=== PATIENT | male | born 1970 | race Caucasian/White ===

== ENCOUNTER 2018-03-26 05:31 | Emergency (ER) | payer BC ==
[2018-03-26] MEDS ORDERED: Sodium Chloride 0.9% 10 ML Syringe FLUSH PRN (06:13)
[2018-03-26] MEDS ORDERED: LORazepam 2 MG/ML SDV IVPUSH ONE ×2 (06:13→09:32)
[2018-03-26] MEDS ORDERED: Sodium Chloride 0.9% 2.5 ML Syringe FLUSH PRN (06:13)
[2018-03-26] MEDS ORDERED: HYDROmorphone 1 MG/ML Syringe IVPUSH ONE ×2 (06:13→09:31)
[2018-03-26] MEDS ORDERED: Ketorolac 30 MG/ML SDV IVPUSH ONE (06:13)
[2018-03-26] MEDS ORDERED: Ondansetron 4 MG/2 ML SDV IVPUSH ONE (06:13)
[2018-03-26] MEDS ORDERED: Sodium Chloride 0.9% 1,000 ML IV SCH (06:15)
--- NOTE | 2018-03-26 06:22 | EDM.PDOC ---
<Fernanda Oconnell - Last Filed: 03/26/18 06:36> ED HPI GENERAL MEDICAL PROBLEM - General Chief Complaint: Back Pain or Injury Stated Complaint: BACK PAIN Time Seen by Provider: 03/26/18 05:50 - History of Present Illness INITIAL COMMENTS - FREE TEXT/NARRATIVE: HISTORY AND PHYSICAL: History of present illness: The patient is a 48-year-old male with a history of chronic back pain who [facility] and is now being seen in our family practice residency clinic and presents with complaints of worsening lumbar back pain radiating to his left leg. According to the patient he was seen in the clinic last week and he was scheduled to have an epidural injection performed here in 2 days on . He has a chronic history of L1-L2 disc disease and in the past to steroid injections have done very well with him in the last one was 13 months ago. He tells me he has not had an MRI for about a year and the clinic was in the process of getting those medical records. The patient has not had any new trauma such as falls or strenuous activity and when he was seen in the clinic he was given some Percocet as well as Zanaflex which he said did not help very much. He tells me that in the past he has never had such severe pain nor has he had the pain radiating to his left leg as severely as this current episode. He also tells me that he is unsure if his left leg feels weaker as there is somewhat pain when he puts weight on it he cannot tell. Sensation is intact and he has not had any bowel disturbances but he has had urinary incontinence 2 times. He tells me that yesterday morning, Sunday morning, he was sleeping and woke up wet on 2 occasions. He initially attributed this to taking the medication and taking his trazodone and being in a deep sleep. He tells me this has never happened to him before. He initially registered to try to get some pain medications to tide him through until the epidural injection. The patient is unsure who is performing this procedure and he has never seen our pain doctor in the pain clinic. The patient has no other systemic complaints such as hematuria dysuria abdominal pain nausea vomiting diarrhea fevers chills chest pain or upper respiratory tract infections or shortness of breath. The patient does tell me that he has had urinary frequency without sensation of urinary retention and again he attributes that to drinking a lot of fluids but that has never happened to him before. Review of systems: As per history of present illness and below otherwise all systems reviewed and negative. Past medical history: As per history of present illness and as reviewed below otherwise noncontributory. Surgical history: As per history of present illness and as reviewed below otherwise noncontributory. Social history: No reported history of drug or alcohol abuse. Family history: As per history of present illness and as reviewed below otherwise noncontributory. Physical exam: General: Well-developed well-nourished man who looks very uncomfortable in the ED and prefers not to sit down because any pressure on his buttocks causes extreme pain in his left leg. He can ambulate but you can see that he is limping because he does not want to put full weight on his left leg. Vital signs are noted by me HEENT: Atraumatic, normocephalic, negative for conjunctival pallor or scleral icterus, mucous membranes moist, throat clear, neck supple, nontender, trachea midline. Lungs: Clear to auscultation, breath sounds equal bilaterally, chest nontender. Heart: S1S2, regular, rhythm and slightly tachycardic rate on my evaluation, no overt murmurs are appreciated Abdomen: Soft, nondistended, nontender. Negative for masses or hepatosplenomegaly. Negative for costovertebral tenderness. Pelvis: Stable nontender. Genitourinary: Deferred. Rectal: There is normal push squeeze and tone on my evaluation and there is normal perianal and perineal sensation Extremities: Atraumatic, negative for cords or calf pain. Neurovascular unremarkable. Neuro: Awake, alert, oriented. Cranial nerves II through XII unremarkable. Cerebellum unremarkable. sensory unremarkable throughout. Dorsi and plantar flexion are intact but there is a subtle weakness on the left side but he can extend the great toe. Inversion and eversion of the feet is intact. Patellar reflexes are +2 over 4 bilaterally with respect to the palpable quadricep contraction but there is not a risk visual with the reflex, the lower extremity on the left does have a subtle weakness compared to the right with a 4.5 over 5 motor Back: There are no midline step-offs tenderness or defects of the thoracic or lumbar spine and no posterior pelvis tenderness. There is no discrete tenderness with palpation of the buttocks bilaterally Diagnostics: Bladder scan, MRI of the lumbar spine Therapeutics: Maintenance IV fluids, nothing by mouth status, Dilaudid Zofran Toradol Ativan Solu-Medrol In light of the patient's history and physical findings I was able to get a stat MRI for 7:30 this morning. Although his physical findings are not as impressive as his history feel that he merits a stat MRI to rule out cauda equina. Patient understands the workup and we will attempt to get his pain under some control. Bladder scan showed 238 mL of urine 0700: Case is endorsed to Dr. Lawler to follow-up the MRI and disposition the patient pending those results. Impression: Acute on chronic lumbar back pain Definitive disposition and diagnosis as appropriate pending reevaluation and review of above. lower back Pain Score (Numeric/FACES): 10 - Related Data Allergies Allergy/AdvReac Type Severity Reaction Status Date / Time No Known Allergies Allergy Verified 03/26/18 05:39 Home Meds: Home Meds Albuterol/Ipratropium [Combivent Respimat] 1 puff INH ASDIRECTED PRN 03/26/18 [ History] oxyCODONE HCl/Acetaminophen [Percocet 5-325 mg Tablet] 0 mg PO ASDIRECTED PRN [History] traZODone HCl [Trazodone HCl] 1 tab PO BEDTIME 03/26/18 [History] Past Medical History Respiratory History: Reports: Asthma Musculoskeletal History: Reports: Back Pain, Chronic Social & Family History - Family History Family Medical History: Noncontributory - Tobacco Use Smoking Status *Q: Never Smoker - Recreational Drug Use Recreational Drug Use: No ED ROS GENERAL - Review of Systems Review Of Systems: ROS reveals no pertinent complaints other than HPI. ED EXAM, GENERAL - Physical Exam Exam: See Below (See dictation) Course - Vital Signs Last Recorded V/S: Last Vital Signs Temp 97 F 03/26/18 08:31 Pulse 58 L 03/26/18 09:50 Resp 16 03/26/18 09:50 BP 130/55 L 03/26/18 09:50 Pulse Ox 97 03/26/18 09:50 - Orders/Labs/Meds Orders: Active Orders 24 hr Category Date Time Status Bladder Scan [RC] ASDIRECTED Care 03/26/18 06:22 Active Lumbar Spine Comp wo Cont [MR] Stat Exams 03/26/18 06:04 Taken Sodium Chloride 0.9% [Normal Saline] 1,000 ml Med 03/26/18 06:15 Active IV ASDIRECTED Sodium Chloride 0.9% [Saline Flush] Med 03/26/18 06:13 Active 10 ml FLUSH ASDIRECTED PRN Sodium Chloride 0.9% [Saline Flush] Med 03/26/18 06:13 Active 2.5 ml FLUSH ASDIRECTED PRN Saline Lock Insert [OM.PC] Stat Oth 03/26/18 06:12 Ordered Medication Orders Sodium Chloride (Normal Saline) 1,000 mls @ 125 mls/hr IV ASDIRECTED JAYLA Last Admin: 03/26/18 06:24 Dose: 125 mls/hr Sodium Chloride (Saline Flush) 10 ml FLUSH ASDIRECTED PRN PRN Reason: Keep Vein Open Sodium Chloride (Saline Flush) 2.5 ml FLUSH ASDIRECTED PRN PRN Reason: Keep Vein Open Meds: Medications Generic Name Dose Route Start Last Admin Trade Name Freq PRN Reason Stop Dose Admin Sodium Chloride 1,000 mls @ 125 mls/hr 03/26/18 06:15 03/26/18 06:24 Normal Saline IV 125 mls/hr ASDIRECTED JAYLA Administration Sodium Chloride 10 ml 03/26/18 06:13 Saline Flush FLUSH ASDIRECTED PRN Keep Vein Open Sodium Chloride 2.5 ml 03/26/18 06:13 Saline Flush FLUSH ASDIRECTED PRN Keep Vein Open Discontinued Medications Generic Name Dose Route Start Last Admin Trade Name Freq PRN Reason Stop Dose Admin Diazepam 5 mg 03/26/18 08:32 03/26/18 08:38 Valium. PO 03/26/18 08:33 5 mg ONETIME ONE Administration Hydromorphone HCl 1 mg 03/26/18 06:13 03/26/18 06:27 Dilaudid IVPUSH 03/26/18 06:14 1 mg ONETIME ONE Administration Hydromorphone HCl 2 mg 03/26/18 09:31 03/26/18 09:39 Dilaudid IVPUSH 03/26/18 09:32 2 mg ONETIME ONE Administration Ketorolac Tromethamine 30 mg 03/26/18 06:13 03/26/18 06:25 Toradol IVPUSH 03/26/18 06:14 30 mg ONETIME ONE Administration Lorazepam 1 mg 03/26/18 06:13 03/26/18 06:28 Ativan IVPUSH 03/26/18 06:14 1 mg ONETIME ONE Administration Lorazepam 1 mg 03/26/18 09:32 03/26/18 09:39 Ativan IVPUSH 03/26/18 09:33 1 mg ONETIME ONE Administration Methylprednisolone Sodium Succinate 125 mg 03/26/18 06:29 03/26/18 06:40 Solu-Medrol IVPUSH 03/26/18 06:30 125 mg ONETIME ONE Administration Morphine Sulfate 6 mg 03/26/18 07:58 03/26/18 08:09 Morphine IVPUSH 03/26/18 07:59 6 mg ONETIME ONE Administration Ondansetron HCl 4 mg 03/26/18 06:13 03/26/18 06:25 Zofran IVPUSH 03/26/18 06:14 4 mg ONETIME ONE Administration Departure - Departure Disposition: DC/[facility]fer to Acute Hospital 02 Clinical Impression: Lumbar disc herniation with radiculopathy - Discharge Information Referrals: Terell Mc MD [Primary Care Provider] - Forms: ED Department Discharge <Heide Lawler - Last Filed: 03/26/18 10:13> ED HPI GENERAL MEDICAL PROBLEM - History of Present Illness INITIAL COMMENTS - FREE TEXT/NARRATIVE: MRI shows herniation between L4 and L5 with L5 nerve root compression, Dr. Cuello was consulted 9:25 from [facility] and after reviewing the MRI accepts the patient. He requested the patient goes to the ER and Dr. Ambrosio accepted the patient to the ER. Patient is being discharged in the ED at 1010. Patient did not get relief from any medications until he received 2 mg of Dilaudid. He remained stable while in the ED. Departure - Departure Time of Disposition: 10:12 Condition: Good - Discharge Information *PRESCRIPTION DRUG MONITORING PROGRAM REVIEWED*: No *COPY OF PRESCRIPTION DRUG MONITORING REPORT IN PATIENT FEDE: No
[2018-03-26] MEDS ORDERED: methylPREDNISolone Sodium Succinate 125 MG/2 ML SDV IVPUSH ONE (06:29)
[2018-03-26] MEDS ORDERED: Morphine 2 MG/ML Syringe IVPUSH ONE (07:58)
[2018-03-26] MEDS ORDERED: Diazepam 5 MG Tab PO ONE (08:32)
--- NOTE | 2018-03-26 13:58 | MR ---
EXAM DATE: 03/26/18 PATIENT'S AGE: 48 Patient: ALBERTO LAMA Facility: [place], [place] Site . Site : [id number] Study: MRI Spine Lumbar [id number]/[id number] 7:36:06 AM Ordering Physician: Kourtney Michael Final Report: INDICATION: Left leg pain. TECHNIQUE: Multiplanar multisequence noncontrast MR images were obtained through the lumbar spine. COMPARISON: None. FINDINGS: Mild leftward lumbar curvature. The lumbar lordosis is preserved. Vertebral heights are maintained. No acute fracture. No spondylolisthesis. No concerning bone marrow signal abnormalities. Conus medullaris terminates at L1-2. No signal abnormalities in the distal cord or conus. T12-L1: No significant spinal canal or neural foraminal stenosis. L1-2: No significant spinal canal or neural foraminal stenosis. L2-3: Minimal disc degeneration. Shallow annular bulge. No significant spinal canal or neural foraminal stenosis. L3-4: Minimal disc degeneration. Shallow annular bulge. No significant spinal canal or neural foraminal stenosis. L4-5: Advanced disc degeneration and moderately advanced disc height loss associated with fatty endplate marrow signal changes. Circumferential disc bulge with superimposed broad-based left central disc extrusion measuring 4 mm in short axis and demonstrating slight caudal migration narrows the left lateral recess with likely impingement of the traversing left L5 nerve roots. Mild bilateral facet joint arthropathy. No significant spinal canal stenosis. [id number] right and mild left neural foraminal stenosis. L5-S1: Disc degeneration and moderately advanced disc height loss associated with fatty marrow signal changes. Shallow left eccentric disc bulging and marginal spurring. No significant spinal canal or neural foraminal stenosis. Subcentimeter T2 hyperintense lesion in the right kidney, statistically most compatible with a renal cyst. IMPRESSION: 1. At L4-5, broad-based left central disc extrusion narrows the left lateral recess with likely impingement of the traversing left L5 nerve roots. Mild bilateral facet arthropathy contributes to [id number] right and mild left neural foraminal stenosis. 2. Moderately advanced disc height loss at L4-5 and L5-S1. 3. Mild leftward lumbar curvature. Dictated by Jimmy Velasquez MD @ Mar 26 2018 8:09AM (Electronic Signature) Report Signed by Proxy. [facility]
== END 2018-03-26 10:20 ==
LOC: MW.ED 05:31
DX: M51.16 Intervertebral disc disorders with radiculopathy, lumbar region (principal); J45.909 Unspecified asthma, uncomplicated
CPT/HCPCS: 51798; 72148; 96361; 96374; 96375; 96376; 99285; A9270; J1170; J1885; J2060; J2270; J2405; J2930; J7040

== ENCOUNTER 2023-04-04 12:37 | Emergency (ER) | payer SELFPAY ==
[2023-04-04] MEDS ORDERED: Sodium Chloride 0.9% 1,000 ML IV ONE (13:00)
[2023-04-04] MEDS ORDERED: Piperacillin/Tazobactam 4.5 GM in Sodium Chloride 0.9% 100 ML IV ONE (13:01)
[2023-04-04] MEDS ORDERED: Acetaminophen 500 MG Tab PO ONE (13:03)
[2023-04-04] MEDS ORDERED: Ketorolac 30 MG/ML SDV IVPUSH ONE (13:03)
[2023-04-04 13:22] LABS: BASOPHILS ABSOLUTE AUTO 0.01 K/uL (0.00-0.20); BASOPHILS PERCENT AUTO 0.1 % (0.0-1.0); EOSINOPHILS ABSOLUTE AUTO 0.01 K/uL (0.00-0.45); EOSINOPHILS PERCENT AUTO 0.1 % (0.0-6.0); HEMATOCRIT 43.9 % (42.0-52.0); HEMOGLOBIN 15.9 g/dL (14.0-18.0); IMMATURE GRAN ABSOLUTE AUTO 0.02 K/uL (0.00-0.05); IMMATURE GRAN PERCENT AUTO 0.2 % (0.0-0.4); LYMPHOCYTES ABSOLUTE AUTO 0.67 K/uL (1.00-4.80); LYMPHOCYTES PERCENT AUTO 7.2 % (24.0-44.0); MEAN CORPUSCULAR HEMOGLOBIN 32.1 pg (28.0-32.0); MEAN CORPUSCULAR HGB CONC 36.2 g/dL (32.0-36.0); MEAN CORPUSCULAR VOLUME 88.5 fL (83.0-99.0); MEAN PLATELET VOLUME 10.3 fL (9.4-12.4); MONOCYTES PERCENT AUTO 10.8 % (0.0-8.0); NEUTROPHILS ABSOLUTE AUTO 7.55 K/uL (1.80-7.70); NEUTROPHILS PERCENT AUTO 81.6 % (41.0-71.0); PLATELET COUNT,PLT 141 K/uL (150-400); RED BLOOD CELL COUNT 4.96 M/uL (4.52-5.90); WHITE BLOOD CELL COUNT,WBC 9.26 K/uL (3.9-11.3)
[2023-04-04 13:49] LABS: A/G RATIO 0.9 (0.9-1.6); ALBUMIN 3.5 g/dL (3.4-5.0); BILIRUBIN TOTAL 0.7 mg/dL (0.2-1.0); C-REACTIVE PROTEIN 8.17 mg/dL (<0.3); CALCIUM 9.2 mg/dL (8.5-10.1); CARBON DIOXIDE,CO2 28.7 mmol/L (21.0-32.0); CREATININE 1.2 mg/dL (0.8-1.3); EST CRCL DRUG DOSING (CG) 75.2 mL/min; POTASSIUM,K 4.5 mmol/L (3.5-5.1); PROTEIN TOTAL,TP 7.2 g/dL (6.4-8.2)
[2023-04-04 13:55] LABS: LACTIC ACID 1.1 mmol/L (0.4-2.0)
[2023-04-04] MEDS ORDERED: Iopamidol 755 MG/ML 500 ML Multipack Bottle IVPUSH STA (14:45)
== END 2023-04-04 15:52 | disposition home or self-care (01) ==
LOC: MW.ED 12:37
DX: L03.211 Cellulitis of face (principal); J45.909 Unspecified asthma, uncomplicated; Z79.899 Other long term (current) drug therapy
CPT/HCPCS: 36415; 70491; 80053; 83605; 85025; 86140; 87040; 96365; 96375; 99284; A9270; J1885; J2543; J3490; J7030; Q9967